=== PATIENT | male | born 1950 | race Caucasian/White ===

== ENCOUNTER 2018-11-19 06:58 | Day surgery (SDC) | payer MEDICARE, OTHER ==
[~2018-11-19] VITALS: Ht 190.5 cm; Wt 127.5 kg
--- NOTE | ~2018-11-19 | OR ---
[facility] [address] [place], [place] [address] Draft DATE OF OPERATION: 11/19/2018 SURGEON: Wilfred Perez MD PREOPERATIVE DIAGNOSES: 1. Personal history of colonic polyps in 2012. 2. Diverticulosis. POSTOPERATIVE DIAGNOSES: 1. 4 mm polyp proximal right colon. 2. 4 mm polyp distal right colon. 3. 4 mm polyp at 35 cm. 4. 4 mm polyp at 16 cm (rectum). 5. Moderate sigmoid diverticulosis. PROCEDURE PERFORMED: Colonoscopy with hot biopsy. ESTIMATED BLOOD LOSS: None. INDICATIONS: Dave is a 67-year-old gentleman, who was asked to see me for a followup colonoscopy. He had several hyperplastic and adenomatous polyps removed back in 2012. He is known to have sigmoid diverticulosis. He has been on Eliquis because of mild stroke back in 2008. It looks like he has paroxysmal atrial fibrillation. He is in sinus rhythm today. He said he has no lower GI complaints. He has no family history of colon cancer or polyps. He did well first on fentanyl previously. In the office, I gave him a pamphlet on colonoscopy. We looked at that together along with the risks including, but not limited to gas bloating, crampy abdominal pain, bleeding, perforation, requiring surgery, and missed diagnosis. He had expressed understanding and wished to proceed. We did have him hold the Eliquis 5 days prior to the procedure. We will have him hold the Eliquis 7 days after the biopsies. He had expressed understanding and wished to proceed. PROCEDURE NOTE: Dave was taken into our endoscopy suite and placed in the left lateral decubitus position. He was given 7 mg of Versed and 100 mcg of fentanyl to cover the case. A digital rectal exam was performed. He does have some induration to his prostate gland. No obvious nodule. The adult colonoscope was introduced and advanced all around into PATIENT NAME: DAVE DUQUE OPERATIVE REPORT DATE OF : 52 REPORT #: [id number] PHYSICIAN: WILFRED PEREZ MD PCP: TOVA HELMS MD REPORT IS CONFIDENTIAL AND NOT TO BE RELEASED WITHOUT AUTHORIZATION [facility] [address] [place], [place] [address] Draft the cecum under direct visualization of camera without difficulty. His prep was overall good. He had a couple of areas of liquid particulate stool matter. I could not quite irrigate and suction all of that out. The scope was slowly withdrawn. The above-mentioned polyps were easily removed with the help of hot biopsy forceps. Dave is a tall gentleman and his rectum is at least 20 cm in length. He also has moderate sigmoid diverticulosis. They are moderate in size, moderate in number, and scattered about. Upon retroflexion of scope, he really has no pathology above the anal canal. After this, the gas was suctioned out. The colonoscope removed. Dave tolerated the procedure quite well. RECOMMENDATIONS: I will see Dave back in my office in 7 to 14 days to review his results. He can resume the Eliquis in 1 week. Wilfred Perez MD ALB/MODL /[id number] cc: MD Wilfred Ochoa MD Copies: WILFRED PEREZ MD ~ PATIENT NAME: DAVE DUQUE OPERATIVE REPORT DATE OF : 52 REPORT #: [id number] PHYSICIAN: WILFRED PEREZ MD PCP: TOVA HELMS MD REPORT IS CONFIDENTIAL AND NOT TO BE RELEASED WITHOUT AUTHORIZATION
[~2018-11-19 06:58] MED LIST: ASPIRIN325 MG PO; ELIQUIS5 M1 PO; HYDROCHLOROTHIA25 MG PO; LISINOPRIL20 MG PO; NORVASC5 MG PO
--- NOTE | 2018-11-19 09:03 | NUR ---
11/19/18 0903 Gisselle Levi 0900 PATIENT ARRIVES TO PACU AWAKE, BUT DROWSY. DENIES PAIN OR NAUSEA. RESP EVEN AND UNLABORED, NC AT 3 LITERS OFF ON ARRIVAL TO ER. ROOM AIR SATS >90%.
--- NOTE | 2018-11-19 09:52 | NUR ---
PT ALERT, ORIENTED AND SUPPORTED BY HIS . PT HAS HAD A NUMBER OF SCOPES, HE SEEMED AT EASE AND HAD FEW QUESTIONS. EXTENDED A BLESSING, WILL FOLLOW NEEDED
== END 2018-11-19 09:30 | disposition home or self-care (01) ==
LOC: OPS 06:58 → DS 06:58 → OPS 08:15 → DS 08:15 → OPS 09:30
PROVIDERS: Colon & Rectal Surgery
PROC: 0DBN8ZX Excision of Sigmoid Colon, Via Natural or Artificial Opening Endoscopic, Diagnostic (ICD-10-PCS; 2018-11-19)
PROC: 0DBP8ZX Excision of Rectum, Via Natural or Artificial Opening Endoscopic, Diagnostic (ICD-10-PCS; 2018-11-19)
PROC: 0DBM8ZX Excision of Descending Colon, Via Natural or Artificial Opening Endoscopic, Diagnostic (ICD-10-PCS; 2018-11-19)
PROC: 0DBK8ZX Excision of Ascending Colon, Via Natural or Artificial Opening Endoscopic, Diagnostic (ICD-10-PCS; principal; 2018-11-19 08:15)
DX: Z12.11 Encounter for screening for malignant neoplasm of colon (principal); D12.2 Benign neoplasm of ascending colon; D12.4 Benign neoplasm of descending colon; D12.5 Benign neoplasm of sigmoid colon; D12.8 Benign neoplasm of rectum; K57.30 Diverticulosis of large intestine without perforation or abscess without bleeding; I10 Essential (primary) hypertension; E78.5 Hyperlipidemia, unspecified; E66.9 Obesity, unspecified; Z86.010 Personal history of colon polyps; Z88.8 Allergy status to other drugs, medicaments and biological substances; Z79.899 Other long term (current) drug therapy; Z68.35 Body mass index [BMI] 35.0-35.9, adult
CPT/HCPCS: 99153; G0500; J2250; J3010; J7120

== ENCOUNTER 2019-04-22 12:06 | Emergency (ER) | payer MEDICARE, OTHER ==
[~2019-04-22] VITALS: Ht 190.5 cm; Wt 127.0 kg
--- NOTE | 2019-04-22 23:01 | EKG ---
[facility] [address] [facility] [place] [address] Signed Atrial fibrillation with rapid ventricular response T wave abnormality, consider inferior ischemia Abnormal ECG No previous ECGs available Confirmed by SREEDHAR WEST DO ([id number]) on 04/22/2019 11:00:57 PM Electronically Signed By: SREEDHAR WEST DO 04/22/19 2301 PATIENT NAME: DAVE DUQUE Electrocardiogram DATE OF : 52 PHYSICIAN: SREEDHAR WEST DO REPORT #: [id number] REPORT IS CONFIDENTIAL AND NOT TO BE RELEASED WITHOUT AUTHORIZATION
== END 2019-04-22 15:00 | disposition home or self-care (01) ==
LOC: ED 12:06
DX: I48.91 Unspecified atrial fibrillation (principal); I10 Essential (primary) hypertension; Z86.73 Personal history of transient ischemic attack (TIA), and cerebral infarction without residual deficits; Z88.8 Allergy status to other drugs, medicaments and biological substances; Z79.899 Other long term (current) drug therapy; Z79.01 Long term (current) use of anticoagulants
CPT/HCPCS: 80053; 83735; 84484; 85025; 93005; 93010; 96374; 99285-25; J2704